=== PATIENT | female | born 1990 | race Caucasian/White ===

== ENCOUNTER 2017-12-28 18:19 | Emergency (ER) | payer BC ==
[~2017-12-28] VITALS: Ht 160 cm; Wt 86.3 kg
[~2017-12-28 18:19] MED LIST: NO HOME MEDS
[2017-12-28] MEDS ORDERED: IBUPROFEN600 MG PO (20:31)
[2017-12-28 20:40] VITALS: BP 111/71
== END 2017-12-28 20:40 | disposition home or self-care (01) | DRG 605 ==
LOC: ED 18:19
DX: S20.212A Contusion of left front wall of thorax, initial encounter (principal); W50.0XXA Accidental hit or strike by another person, initial encounter; Y93.83 Activity, rough housing and horseplay; Y92.009 Unspecified place in unspecified non-institutional (private) residence as the place of occurrence of the external cause

== ENCOUNTER 2018-03-04 08:33 | Emergency (ER) | payer BC ==
[~2018-03-04] VITALS: Ht 160 cm; Wt 86.4 kg
[~2018-03-04 08:33] MED LIST changes: +IBUPROFEN600 MG PO
[2018-03-04] MEDS ORDERED: AMOXICILLIN500 MG PO ×2 (08:54→09:50)
[2018-03-04] MEDS ORDERED: TORADOL PO ×2 (08:54→09:50)
[2018-03-04] MEDS ORDERED: CORTISPORIN OTI10 M2 AU ×2 (08:54→09:50)
[2018-03-04 09:07] VITALS: BP 125/84
[2018-03-05] MEDS ORDERED: ADVIL200 MG PO (15:09)
[2018-03-05] MEDS ORDERED: AMOXICILLIN875 MG PO (15:27)
[2018-03-05] MEDS ORDERED: LORTAB 5/3255 MG PO (15:27)
== END 2018-03-04 09:15 | disposition home or self-care (01) | DRG 156 ==
LOC: ED 08:33
DX: H60.91 Unspecified otitis externa, right ear (principal); H66.91 Otitis media, unspecified, right ear

== ENCOUNTER 2018-03-05 14:35 | Emergency (ER) | payer BC ==
[~2018-03-05] VITALS: Ht 160 cm; Wt 76.0 kg
[~2018-03-05 14:35] MED LIST changes: +AMOXICILLIN500 MG PO; +CORTISPORIN OTI10 M2 AU; +TORADOL PO
[2018-03-05] MEDS ORDERED: ADVIL200 MG PO (15:09)
[2018-03-05] MEDS ORDERED: LORTAB 5/3255 MG PO (15:27)
[2018-03-05] MEDS ORDERED: AMOXICILLIN875 MG PO (15:27)
[2018-03-05 15:40] VITALS: BP 124/65
== END 2018-03-05 15:40 | disposition home or self-care (01) | DRG 153 ==
LOC: ED 14:35
DX: H66.91 Otitis media, unspecified, right ear (principal); J02.9 Acute pharyngitis, unspecified
CPT/HCPCS: J0561

== ENCOUNTER 2022-09-15 09:26 | Emergency (ER) | payer OTHER ==
[~2022-09-15] VITALS: Ht 162.6 cm; Wt 102.0 kg
[2022-09-15] VITALS (10 sets, daily range): BP systolic 108–147; BP diastolic 64–91
[~2022-09-15 09:26] MED LIST changes: +ADVIL200 MG PO; +AMOXICILLIN875 MG PO; +LORTAB 5/3255 MG PO
[2022-09-15] MEDS ORDERED: IBUPROFEN600 MG PO (11:21)
== END 2022-09-15 12:07 | disposition home or self-care (01) | DRG 605 ==
LOC: ED 09:26
DX: S50.812A Abrasion of left forearm, initial encounter (principal); V49.40XA Driver injured in collision with unspecified motor vehicles in traffic accident, initial encounter; W22.11XA Striking against or struck by driver side automobile airbag, initial encounter

== ENCOUNTER 2022-09-19 18:29 | Emergency (ER) | payer OTHER ==
[~2022-09-19] VITALS: Ht 162.6 cm; Wt 102.3 kg
[2022-09-19 18:35] VITALS: BP 130/84
[2022-09-19 19:03] LABS: BASO% 0.3 % (0-3); EOS% 3.8 % (0-8); IMMATURE GRANULOCYTES 0.3 % (0.0-5.0); LYMPH% 22.9 % (15-41); MEAN CELL VOLUME 86.1 fL CALC (80.0-100.0); MEAN CORPUSCULAR HGB 27.9 pG CALC (26.0-32.0); MEAN CORPUSCULAR HGB CONC 32.4 g/dL CAL (32.0-36.0); MONO% 7.4 % (2-13); NEUT% 65.3 % (42-76); RED BLOOD COUNT 4.81 mill/uL (4.20-5.60); RED CELL DISTRI WIDTH 12.8 % (11.5-15.5)
[2022-09-19 19:04] LABS: HEMATOCRIT 41.4 % (37.0-47.0); HEMOGLOBIN 13.4 g/dl (12.0-16.0)
[2022-09-19 19:11] VITALS: BP 122/68
[2022-09-19 19:15] LABS: ALBUMIN 3.7 g/dL (3.2-5.0); ANION GAP 11 (6-22 (CALC)); BUN 12 mg/dL (7-17); BUN/CREATININE RATIO 14 (12-20 (CALC)); CARBON DIOXIDE 25 mmol/l (22-30); CHLORIDE 105 mmol/l (95-108); CREATININE 0.8 mg/dL (0.5-1.0); GFR FOR AFR.AMER. > 60 ML/MIN (>=60 (CALC)); GFR OTHER RACES > 60 ML/MIN (>=60 (CALC)); POTASSIUM 4.4 mmol/l (3.5-5.1); SGOT/AST 25 u/l (14-36); SODIUM 138 mmol/l (137-146); TOTAL PROTEIN 6.8 g/dL (6.3-8.2)
[2022-09-19 19:17] LABS: ALKALINE PHOSPHATASE 61 u/l (38-126); BILIRUBIN, TOTAL 0.7 mg/dL (0.02-1.3)
[2022-09-19] MEDS ORDERED: FIORICET PO (21:45)
[2022-09-19 21:57] VITALS: BP 122/68
== END 2022-09-19 22:01 | disposition home or self-care (01) | DRG 103 ==
LOC: ED 18:29
PROVIDERS: Nurse Practitioner
DX: R51.9 Headache, unspecified (principal)

== ENCOUNTER 2024-04-13 22:05 | Emergency (ER) | payer MEDICAID ==
[~2024-04-13] VITALS: Ht 162.6 cm; Wt 93.0 kg
[~2024-04-13 22:05] MED LIST changes: +FIORICET PO
[2024-04-13 22:31] VITALS: BP 109/72
[2024-04-13 22:45] VITALS: BP 95/57
[2024-04-13] MEDS ORDERED: ACETAMINOPHEN 500 MG TAB PO ONE (22:45)
[2024-04-13 23:00] VITALS: BP 101/64
[2024-04-13 23:15] VITALS: BP 90/61
[2024-04-13 23:30] VITALS: BP 96/58
[2024-04-13 23:35] VITALS: BP 96/58
== END 2024-04-13 23:40 | disposition home or self-care (01) ==
LOC: ED 22:05
DX: S60.011A Contusion of right thumb without damage to nail, initial encounter (principal); W23.0XXA Caught, crushed, jammed, or pinched between moving objects, initial encounter